=== PATIENT | female | born 1980 | race Caucasian/White ===

== ENCOUNTER → 2016-07-09 | Day surgery (SDC) | payer OTHER ==
--- NOTE | 2016-07-07 14:37 | MH ---
cc: August SONG DATE OF ADMISSION 07/09/2016 ADMISSION DIAGNOSIS Internal derangement right knee including torn medial meniscus right knee now for arthroscopy right knee. ADMISSION HISTORY AND PHYSICAL This pleasant 35-year-old female is being admitted today for pain in her right knee. She is now scheduled for arthroscopy right knee. OTHER PAST HISTORY Patient has medical history of: 1. Post traumatic stress disorder from being in combat. 2. She has a history of depression. 3. Neck and back pain 4. Thyroid issues CURRENT MEDICATIONS Include: 1. Minipress 2. [place] 3. Klonopin 4. Wellbutrin 5. Lamictal 6. Lamotrigine 7. Protonix 8. Synthroid PREVIOUS SURGICAL HISTORY Include a: 1. Right knee arthroscopy several years 2. Lasik eye surgery REVIEW OF SYSTEMS Noncontributory FAMILY HISTORY Noncontributory SOCIAL HISTORY The patient does smoke cigarettes, but does not drink. ALLERGIES She has no known allergies. PHYSICAL EXAMINATION We find a 35-year-old female well-developed, well-nourished oriented x3 complaining of pain in her right knee. VITAL SIGNS: Blood pressure 118/80, pulse 68 and regular, respirations 20, temperature 98.0, pulse oximetry 98% on room air. HEENT: Eyes PERRL, EOMI. Ears, nose, mouth clear. NECK: Supple. LUNGS: Clear. HEART: Regular rate. ABDOMEN: Soft. Positive bowel sounds, nontender. EXTREMITIES: The right knee is noted to be tender along the posterior medial border of the right knee. She is neurovascularly her toes. IMPRESSION AT THIS TIME Internal derangement right knee including torn medial meniscus and arthritic degeneration lateral compartment. PLAN Admission for arthroscopy right knee today. The patient given prescription for postoperative pain control in the office. MD ROXANA Reardon/AREN /12:54 PM /2:25 PM
[~2016-07-09] VITALS: Ht 167.6 cm; Wt 84.7 kg
[~2016-07-09] MED LIST: *morphine SULFATE 8 MG/ML PERIprocedure ONLY ONE; ACETAMINOPHEN 1000 MG/100 ML VIAL IV ONE; ACETAMINOPHEN/HYDROcodone 325 MG/5 MG TAB PO PRN; BENZ1CAP8 PO; BUPIVACAINE/EPINEPHRINE 0.25% PF 30 ML VIAL ONE; CHLORHEXIDINE GLUCONATE 4% SOLN 120 ML BTL TOP SCH; CLON0.5T PO; DO NOT ADM ANY ANTICOAGULANT DRUGS XX PRN; FLUT50SP EACH NARE; GLUC1CAP16 PO; HYDR1CRE TOPICAL; INSULIN HUMAN REGULAR 1,000 UNITS/10 ML VIAL SQ PRN; KETOROLAC TROMETHAMINE 60 MG/2 ML (IM) VIAL IM ONE; LACTATED RINGER'S 1000 ML INJ 1,000 ML IV ONE; LACTATED RINGER'S 1000 ML IV SCH; LAMO100 PO; LITH150C PO; LITH300T3 PO; MELO-1 PO; MEPERIDINE HCL 50 MG/ML VIAL IM PRN; METOPROLOL TARTRATE 25 MG TAB PO PRN; MIDAZOLAM HCL 2 MG/2 ML VIAL ONE; NICOINH INH; ONDANSETRON HCL 4 MG/2 ML VIAL IV PUSH ONE; ONDANSETRON ODT 4 MG TAB PO PRN; PANT40TA3 PO; PRAZ1 PO; PROPOFOL 200 MG/20 ML AMP IV ONE; QUET-88 PO; RIZA10TA2 PO; SERT-129 PO; SODIUM CHLORID 0.9% 500 ML IV SCH; SYNT88TA PO; ceFAZolin 2 GM PREMIX 50 ML IV SCH; fentaNYL CITRATE 250 MCG/5 ML AMP ONE
[2016-07-09 07:45] VITALS: BP 113/65; PULSE 76; RESP 16; TEMP 97.8; O2SAT 95
[2016-07-09 08:00] LABS: AUTOMATED NEUTROPHIL # 13.9 TH/MM3 (1.8-7.7); BASOPHIL # 0.1 TH/MM3 (0-0.2); BASOPHIL % 0.4 % (0.0-2.0); EOSINOPHIL # 0.3 TH/MM3 (0-0.4); EOSINOPHIL % 1.8 % (0.0-4.0); HEMATOCRIT 39.3 % (35.0-46.0); HEMO FLAGS DIFF FINAL; LYMPH % 14.7 % (9.0-44.0); LYMPHOCYTE # 2.6 TH/MM3 (1.0-4.8); MEAN CELL VOLUME 91.3 FL (80.0-100.0); MEAN CORPUSCULAR HEMOGLOBIN 30.2 PG (27.0-34.0); MEAN CORPUSCULAR HGB CONC 33.1 % (32.0-36.0); MONO % 4.4 % (0.0-8.0); NEUT % 78.7 % (16.0-70.0); PLATELET COUNT 321 TH/MM3 (150-450); RED CELL DISTRIBUTION WIDTH 13.2 % (11.6-17.2); WHITE BLOOD COUNT 17.7 TH/MM3 (4.0-11.0)
[2016-07-09 08:02] LABS: BACTERIA, URINE RARE /hpf; BLOOD, URINE NEG (NEG); COMMENT (UR) CULT NOT INDICATED; CULTURE IF INDICATED CULT NOT INDICATED; GLUCOSE,URINE NEG (NEG); KETONE, URINE NEG (NEG); NITRITE,URINE NEG (NEG); PH, URINE 6.5 (5.0-8.5); SQUAMOUS EPITHELIAL CELL URINE 1 /hpf (0-5); URINE COLOR YELLOW (YELLW/STRAW)
[2016-07-09 08:09] LABS: APTT (PATIENT) 27.9 SEC (24.3-30.1); INTERNATIONAL NORMALIZED RATIO 0.9 RATIO; PROTHROMBIN TIME - PATIENT 10.2 SEC (9.8-11.6)
[2016-07-09 08:21] LABS: ALT (GPT) 14 U/L (10-53); AST (GOT) 7 U/L (15-37); BICARBONATE 24.2 MEQ/L (21.0-32.0); BLOOD UREA NITROGEN 7 MG/DL (7-18); CHLORIDE 104 MEQ/L (98-107); GLOMERULAR FILTRATION RATE 71 ML/MIN (>89); POTASSIUM 3.8 MEQ/L (3.5-5.1); SODIUM (NA) 138 MEQ/L (136-145)
[2016-07-09 08:22] LABS: ANION GAP 10 MEQ/L (5-15)
[2016-07-09 08:24] LABS: ALKALINE PHOSPHATASE 75 U/L (45-117); TOTAL BILIRUBIN ADULT 0.3 MG/DL (0.2-1.0)
[2016-07-09 12:35] VITALS: TEMP 97.7
[2016-07-09 13:15] VITALS: BP 136/73; PULSE 63; RESP 18; O2SAT 98
--- NOTE | 2016-07-09 22:37 | EKG ---
Date Performed: 07/09/2016 Time Performed: 07:55:02 PTAGE: 35 years EKG: Sinus rhythm LOW QRS VOLTAGE IN PRECORDIAL LEADS MINIMAL VOLTAGE CRITERIA FOR LVH, CONSIDER NORMAL VARIANT BORDER LINE ECG NO PREVIOUS TRACING DOCTOR: Nathaniel Leung Interpretating Date/Time 07/09/2016 22:34:53
--- NOTE | 2016-07-13 19:37 | MP ---
cc: August SONG M.D. DATE OF SURGERY: 07/09/2016 PREOPERATIVE DIAGNOSIS: Internal derangement right knee. POSTOPERATIVE DIAGNOSIS Internal derangement right knee. 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 SURGERY PREFORMED: Arthroscopy with excision of torn medial meniscal tear and chondroplasty of the osteochondral defects medial lateral weightbearing surfaces of the distal femur right knee. SURGEON Dr. Song PHOTOGRAPHY EDITOR: GRICEL Gutierrez. ANESTHESIA LMA PROCEDURE: The patient was brought to the operating room and placed on the operating room table in the supine position. After successful induction of general anesthesia, the patient's right leg was prepped and draped in the usual manner. The knee was then placed in a knee jordan and tightened. Arthroscopic examination was then performed by making a stab wound over the proximal superior and medial aspect of the patellofemoral joint for insertion of the inflow cannula and fluid, followed by stab wounds over the medial and lateral joint margins respectively for insertion of the arthroscope, shaver and probe. Arthroscopic examination was then performed which revealed the findings were intact to the anterior cruciate, intact patellofemoral joint. Osteochondral defects both medial and lateral femoral condyles noted in the weightbearing surfaces these areas were debrided and using ArthroCare system smooth to smooth surface by doing chondroplasty. The rest of the lateral compartment found to be intact medial compartment found to have a tear of the posterior horn medial meniscus which was removed using the ArthroCare cutter shaver probe to afford smooth surface patellofemoral joint was intact and the rest of the knee found to be intact. Wound irrigated copiously, lactated Ringer's solution. Excess fluid removed 10 cc of 0.25% Marcaine plain inserted around the synovium in the knee joint and skin approximately interrupted 3-0 nylon suture. Wet and dry dressing applied to the wound, followed by Xeroform gauze, sterile dressing and thigh-high [place] wrap. No tourniquet utilized. Estimated blood loss 10 cc. Sponge count correct. The patient of procedure well left the operating in satisfactory condition. MD ROXANA Reardon/paresh /11:34 AM /7:26 PM
== END | disposition home or self-care (01) ==
LOC: HSDC 07:03
PROVIDERS: ATTEND Surgery
DX: S83.241A Other tear of medial meniscus, current injury, right knee, initial encounter (principal); R94.31 Abnormal electrocardiogram [ECG] [EKG]; F43.10 Post-traumatic stress disorder, unspecified
CPT/HCPCS: 01400; 29881; 80053; 81001; 85025; 85610; 85730; 93005; J0131; J1885; J2250; J2270; J2405; J3010; J7120